=== PATIENT | female | born 1950 | race Caucasian/White ===

== ENCOUNTER → 2017-07-17 | Outpatient (CLI) | payer MEDICARE, OTHER ==
[~2017-07-17] MED LIST: AZITHROMYCIN250 MG PO; BENAZEPRIL HYDR20 MG PO; CEFDINIR300 MG PO; CHEWABLE ASPIRI81 MG PO; CITRATE OF1.75 GM/31 PO; HYDROCHLOROTHIA25 M1 PO; LEXAPRO5 MG PO; ZOFRAN4 MG PO
--- NOTE | 2017-07-19 07:07 | RADIOLOGY REPORT PS360 ---
CT ABD PELVIS W/ CONTRAST CLINICAL INDICATION: Right-sided abdominal pain, right flank pain, history of pancreatic cyst EPIGASTRIC PAIN, PANCREATIC CYST, FHX PANCREATIC CANCER ORDERING PHYSICIAN: Chadwick Mcknight MD PATIENT AGE: 67 years COMPARISON: 03/31/2016 TECHNIQUE: Axial images obtained with sagittal and coronal reformats. 3 phase imaging performed PROCEDURE: Oral Contrast: None IV Contrast: 75 mL of [id number]-[id number]. FINDINGS: No acute finding in the lower chest. There has been a prior cholecystectomy. The liver, spleen, and adrenal glands are unremarkable. There is minimal prominence of the biliary system which may be due to physiologic changes following the cholecystectomy not significantly changed from 03/31/2016. No change in the small cystic pancreatic lesion involving the body the pancreas. No new pancreatic lesions are evident. No pancreatic ductal dilatation. No hydronephrosis or obstructing renal or ureteral calculus. 4 mm isodensity right kidney posteriorly to small to characterize. Scattered small lymph nodes are present in the mesentery's and right lower quadrant nonspecific and unchanged. No evidence of appendicitis, diverticulitis, intestinal obstruction, or free air. No acute bony anomalies. IMPRESSION: 1. Stable CT appearance of the abdomen and pelvis. No acute finding. 2. No change in the 7 mm isodensity of the body the pancreas suggesting a small cystic lesion. The interval stability suggests benign etiology. Continued annual follow-up recommended to confirm a 2 year stability
== END ==
LOC: RAD 09:14
DX: R10.13 Epigastric pain (principal); K86.2 Cyst of pancreas; Z80.0 Family history of malignant neoplasm of digestive organs
CPT/HCPCS: Q9967